=== PATIENT | female | born 1995 | race Caucasian/White ===

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

== ENCOUNTER 2017-04-05 17:40 | Emergency (ER) | payer BC ==
[~2017-04-05] VITALS: Ht 162.6 cm; Wt 72.7 kg
[~2017-04-05 17:40] MED LIST: AMOX250C3 PO
[2017-04-05 18:03] VITALS: Ht 162.6 cm; Wt 72.7 kg
[2017-04-05] MEDS ORDERED: ACETAMINOPHEN 500 MG TAB PO ONE (18:05)
[2017-04-05] MEDS ORDERED: CEFTRIAXONE SOD INJ 1 GM ADDVIAL IV STA (19:30)
[2017-04-05] MEDS ORDERED: SODIUM CHLORIDE 0.9% 1000ML 1,000 ML IV STA (19:30)
[2017-04-05] MEDS ORDERED: KETOROLAC TROMETHAMINE 30 MG/ML VIAL IV STA (19:30)
[2017-04-05 19:33] VITALS: TEMP 37.1
[2017-04-05 19:46] LABS: BASO % 0.1 %; BASO ABS # 0.01 K/uL (0-0.2); COMPLETE YES; EOS % 0.1 %; HEMATOCRIT 41.3 % (37-47); IG% 0.4 %; LYMPH % 17.5 %; LYMPH ABS # 2.36 K/uL (1.2-3.4); MEAN CORPUSCULAR HEMOGLOBIN 29.8 pg (25-34); MEAN CORPUSCULAR HGB CONC 32.4 g/dl (32-36); MEAN PLATELET VOLUME 9.3 fL (7.4-10.4); MONO % 12.4 %; NEUT % 69.5 %; PLATELET COUNT 349 K/uL (130-400); RED BLOOD COUNT 4.49 M/uL (4.2-5.4); WHITE BLOOD COUNT 13.49 K/uL (4.8-10.8)
[2017-04-05] MEDS ORDERED: CEFD1CAP14 PO (20:00)
--- NOTE | 2017-04-05 20:04 | EMERGENCY ROOM VISIT NOTE ---
History Report prepared by Mark: Sarath Damon Under the Supervision of: Dr. Usama Blevins D.O. First contact with patient: 19:21 Chief Complaint: URINARY SYMPTOMS Stated Complaint: LOW BACK PAIN, FEVER, UTI Nursing Triage Summary: Pt sent by [facility]. Pt reports pain across lower back, pain with urination. UTI two weeks ago, resolved then sx began again this weekend. Pt medicated with 1000mg Tylenol in triage. History of Present Illness The patient is a 21 year old female who presents to the Emergency Room with complaints of persistent urinary symptoms beginning this week. She states "I have a UTI". She also complains of low back pain. [facility] for similar symptoms and was referred to the ED after being found to be febrile. She states that she had similar symptoms last week, but they resolved briefly. She states that she took Azo last week, but was never on antibiotics. The patient denies any nausea, abdominal pain, or vaginal discharge. She is sexually active, but denies any chance of . Her LNMP was about two weeks ago. The patient has never been on antibiotics for a UTI before in the past. Source of History: patient Onset: This week Quality: other (urinary symptoms) Timing: other (persistent) Associated Symptoms: + fevers, + back pain (low), No nausea, No abdominal pain Note: The patient denies any vaginal discharge. Review of Systems See HPI for pertinent positives & negatives. A total of 10 systems reviewed and were otherwise negative. Past Medical & Surgical Medical Problems: (1) Asthma (2) Mononucleosis Family History Cancer Social History Smoking Status: Never Smoker Housing Status: lives with family Occupation Status: unemployed, [employer] Current/Historical Medications Scheduled Cefdinir (Omnicef), 300 MG PO Q12H Allergies Coded Allergies: No Known Allergies (Unverified , 04/05/17) Physical Exam Vital Signs Date Time Temp Pulse Resp B/P (MAP) Pulse Ox O2 Delivery O2 Flow Rate FiO2 04/05/17 21:05 66 18 112/67 98 04/05/17 19:37 86 18 132/70 97 Room Air 04/05/17 19:33 37.1 04/05/17 18:03 39.0 96 18 125/93 99 Room Air Physical Exam GENERAL: Patient is awake, alert, and in no acute distress. Patient is resting comfortably and showing no signs of anxiety EYES: The conjunctivae are clear. The pupils are round and reactive. EARS, NOSE, MOUTH AND THROAT: The nose is without any evidence of any deformity. Mucous membranes are moist tongue is midline NECK: The neck is nontender and supple. RESPIRATORY: Normal respiratory effort is noted there is no evidence of wheezing rhonchi or rales CARDIOVASCULAR: Regular rate and rhythm noted there no murmurs rubs or gallops normal S1 normal S2 GASTROINTESTINAL: Bowel sounds are present in all quadrants. Soft with mild suprapubic tenderness to palpation. No rebound, rigidity, or guarding. BACK: Mild CVA tenderness bilaterally. No midline tenderness. ROM intact. MUSCULOSKELETAL/EXTREMITIES: There is no evidence of gross deformity full range of motion is noted in the hips and shoulders SKIN: There is no obvious evidence of any rash. There are no petechiae, pallor or cyanosis noted. NEUROLOGIC: Patient is awake alert and oriented x3. Gait steady. Medical Decision & Procedures Laboratory Results 04/05/17 19:27 Red Blood Count 4.49, Mean Corpuscular Volume 92.0, Mean Corpuscular Hemoglobin 29.8, Mean Corpuscular Hemoglobin Concent 32.4, Mean Platelet Volume 9.3, Neutrophils (%) (Auto) 69.5, Lymphocytes (%) (Auto) 17.5, Monocytes (%) (Auto) 12.4, Eosinophils (%) (Auto) 0.1, Basophils (%) (Auto) 0.1, Neutrophils # (Auto ) 9.38, Lymphocytes # (Auto) 2.36, Monocytes # (Auto) 1.67, Eosinophils # (Auto ) 0.02, Basophils # (Auto) 0.01 04/05/17 19:27 Test 04/05/17 19:27 04/05/17 19:35 White Blood Count 13.49 K/uL (4.8-10.8) Red Blood Count 4.49 M/uL (4.2-5.4) Hemoglobin 13.4 g/dL (12.0-16.0) Hematocrit 41.3 % (37-47) Mean Corpuscular Volume 92.0 fL (80-100) Mean Corpuscular Hemoglobin 29.8 pg (25-34) Mean Corpuscular Hemoglobin Concent 32.4 g/dl (32-36) Platelet Count 349 K/uL (130-400) Mean Platelet Volume 9.3 fL (7.4-10.4) Neutrophils (%) (Auto) 69.5 % Lymphocytes (%) (Auto) 17.5 % Monocytes (%) (Auto) 12.4 % Eosinophils (%) (Auto) 0.1 % Basophils (%) (Auto) 0.1 % Neutrophils # (Auto) 9.38 K/uL (1.4-6.5) Lymphocytes # (Auto) 2.36 K/uL (1.2-3.4) Monocytes # (Auto) 1.67 K/uL (0.11-0.59) Eosinophils # (Auto) 0.02 K/uL (0-0.5) Basophils # (Auto) 0.01 K/uL (0-0.2) RDW Standard Deviation 43.2 fL (36.4-46.3) RDW Coefficient of Variation 12.8 % (11.5-14.5) Immature Granulocyte % (Auto) 0.4 % Immature Granulocyte # (Auto) 0.05 K/uL (0.00-0.02) Anion Gap 9.0 mmol/L (3-11) Est Creatinine Clear Calc Drug Dose 117.9 ml/min Estimated GFR () 133.9 Estimated GFR (Non- 115.6 BUN/Creatinine Ratio 10.1 (10-20) Calcium Level 9.6 mg/dl (8.5-10.1) Total Bilirubin 0.6 mg/dl (0.2-1) Direct Bilirubin 0.2 mg/dl (0-0.2) Aspartate Amino Transf (AST/SGOT) 15 U/L (15-37) Alanine Aminotransferase (ALT/SGPT) 16 U/L (12-78) Alkaline Phosphatase 72 U/L (45-117) Total Protein 8.4 gm/dl (6.4-8.2) Albumin 4.0 gm/dl (3.4-5.0) Lipase 81 U/L (73-393) Human Chorionic Gonadotropin, Qual NEG (NEG) Urine Color ORANGE Urine Appearance CLEAR (CLEAR) Urine pH (4.5-7.5) Urine Specific [place] 1.008 (1.000-1.030) Urine Protein (NEG) Urine Glucose (UA) (NEG) Urine Ketones (NEG) Urine Occult Blood (NEG) Urine Nitrite (NEG) Urine Bilirubin (NEG) Urine Urobilinogen (NEG) Urine Leukocyte Esterase (NEG) Urine RBC 10-30 /hpf (0-4) Urine WBC >30 /hpf (0-5) Urine Epithelial Cells >30 /lpf (0-5) Urine Bacteria 2+ (NEG) Laboratory results per my review. Medications Administered Medications (Trade) Dose Ordered Sig/Deandre Route Start Time Stop Time Status Last Admin Dose Admin Acetaminophen (Tylenol Tab) 1,000 mg STK-MED ONCE PO 04/05/17 18:05 04/05/17 18:06 DC 04/05/17 18:07 1,000 MG Ketorolac Tromethamine (Toradol Inj) 30 mg NOW STAT IV 04/05/17 19:30 04/05/17 19:32 DC 04/05/17 19:39 30 MG Sodium Chloride 1,000 ml @ 999 mls/hr Q1H1M STAT IV 04/05/17 19:30 04/05/17 20:30 DC 04/05/17 19:38 999 MLS/HR Ceftriaxone Sodium (Rocephin Inj) 1 gm NOW STAT IV 04/05/17 19:30 04/05/17 19:32 DC 04/05/17 19:39 1 GM ED Course 1920: The patient was evaluated in room C2B. A complete history and physical examination were performed. 1930: Ordered Rocephin Inj 1 gm IV, NSS 1,000 ml @ 999 mls/hr IV, Toradol Inj 30 mg IV. Medical Decision Differential diagnosis: Etiologies such as renal colic, appendicitis, diverticulitis, mesenteric ischemia, aortic pathology, infections, inflammatory bowel disease, PUD, biliary pathology, UTI, as well as others were entertained. Nursing notes reviewed. The patient is a 21-year-old female who presented to the emergency department for an evaluation of dysuria frequency and low back pain. The patient was initially seen at [facility] and was sent to the emergency department for further evaluation. The patient was treated with IV fluids in the emergency department. She was also started on antibiotics. I discussed the patient's laboratory results with her. She was feeling much better on subsequent reevaluation. She has no signs of sepsis. She is young and healthy and I feel she would do well as an outpatient with an antibiotic regimen. She was encouraged to drink plenty clear liquids and continue all medications as prescribed. She was also encouraged to follow-up with [facility] but return to the emergency department immediately if symptoms change worsen or the need arises. Medication Reconcilliation Current Medication List: was personally reviewed by me Blood Pressure Screening Patient's blood pressure: Normal blood pressure Blood pressure disposition: Did not require urgent referral Impression Primary Impression: Urinary tract infection Additional Impression: Fever Scribe Attestation The scribe's documentation has been prepared under my direction and personally reviewed by me in its entirety. I confirm that the note above accurately reflects all work, treatment, procedures, and medical decision making performed by me. Departure Information Dispostion Home / Self-Care Prescriptions Cefdinir (Omnicef) 300 Mg Cap 300 MG PO Q12H, #14 CAP Prov: Usama Blevins, DO 04/05/17 Referrals No Doctor, Assigned (PCP) Forms HOME CARE DOCUMENTATION FORM, IMPORTANT VISIT INFORMATION Patient Instructions My [facility], Urinary Tract Infecs Women Additional Instructions Continue using Motrin and Tylenol as directed for fever and body aches. Drink plenty of clear liquids. Continue all medications as prescribed. Follow-up with [facility] this week for reevaluation. Return to the emergency department immediately if symptoms change worsen or the need arises. Problem Qualifiers Primary Impression: Urinary tract infection Urinary tract infection type: site unspecified Hematuria presence: without hematuria Qualified Codes: N39.0 - Urinary tract infection, site not specified Additional Impression: Fever Fever type: unspecified Qualified Codes: R50.9 - Fever, unspecified
[2017-04-05 20:11] LABS: MANUAL MICROSCOPIC REQUIRED? YES; REVIEW REQ? NO; SULFASALICYLIC ACID POS (NEG); URINE APPEARANCE CLEAR (CLEAR); URINE COLOR ORANGE; URINE SPECIFIC GRAVITY 1.008 (1.000-1.030)
[2017-04-05 20:19] LABS: URINE BACTERIA 2+ (NEG); URINE WBC >30 /hpf (0-5)
[2017-04-05 20:27] LABS: PREG INTERNAL NEGATIVE QC NEG CLEAR BACKGROUND; PREG INTERNAL POSITIVE QC POS CONTROL LINE
[2017-04-05 20:29] LABS: BUN/CREATININE RATIO 10.1 (10-20); CALCIUM 9.6 mg/dl (8.5-10.1); CREATININE 0.75 mg/dl (0.60-1.20); POTASSIUM 3.7 mmol/L (3.5-5.1)
[2017-04-05 21:05] VITALS: BP 112/67; PULSE 66; O2SAT 98
== END 2017-04-05 21:06 | disposition home or self-care (01) ==
LOC: C.EDB 17:41 → C.EDC 21:06
DX: N39.0 Urinary tract infection, site not specified (principal); R50.9 Fever, unspecified; J45.909 Unspecified asthma, uncomplicated; Z80.9 Family history of malignant neoplasm, unspecified

== ENCOUNTER 2017-09-03 03:46 | Emergency (ER) | payer BC ==
[~2017-09-03] VITALS: Ht 162.6 cm; Wt 69.3 kg
[~2017-09-03 03:46] MED LIST changes: -AMOX250C3 PO; +CEFD1CAP14 PO
[2017-09-03 03:49] VITALS: TEMP 36.5; Ht 162.6 cm; Wt 69.3 kg
[2017-09-03] MEDS ORDERED: LIDOCAINE/EPINEPH/TETRACAINE 1 EA SYR EXT STA (04:44)
[2017-09-03 05:21] VITALS: BP 122/60; PULSE 89; O2SAT 98
--- NOTE | 2017-09-03 05:46 | EMERGENCY ROOM VISIT NOTE ---
ED Visit Note First contact with patient: 04:41 CHIEF COMPLAINT: Facial laceration HISTORY OF PRESENT ILLNESS: This 22-year-old female patient presents emergency department, ambulatory, complaining of a laceration to the inferior chin. The patient states she awoke early this morning to go to the bathroom, and as she was getting out of bed, she tripped on a shirt which was playing on her linoleum floor. She states when she stepped on this shirt, it slipped, and she fell onto the ground. She denies striking her head against any furniture, but states the laceration is from the head into the linoleum floor. There was no loss of consciousness, vomiting, or unusual behavior afterwards. Denies neck pain. No headache, nausea, or blurred vision. There is minimal bleeding. The patient rates the pain as minimal and 2/10. The patient's tetanus shot is up to date. REVIEW OF SYSTEMS: A 6 system review of systems was completed with positives and pertinent negatives listed in the HPI. ALLERGIES: None MEDICATIONS: None PMH: None SOCIAL HISTORY: The patient lives locally with her roommate. She is a [employer] student. She denies drug, alcohol, tobacco use. PHYSICAL EXAM: Vital Signs: Reviewed Nurse's notes, vital signs stable. GENERAL : This is a 22-year-old white female, in no acute distress, well-developed, well -nourished. NEURO: The patient is alert and oriented to person place and time. No focal neurological defects. EYES: Pupils are round, equal, and react to light. EOMI. EARS: No hemotympanum. NECK: Supple. No cervical spine tenderness. FACE: No facial bone tenderness or mandibular tenderness. The mouth can open fully. The teeth are well aligned. No loose or chipped teeth. SKIN: There is a 1 cm laceration on the inferior chin. The edges gape apart with traction. There is no active bleeding and no foreign material in the wound. There are no deep structures present. Capillary refill less than two seconds. Normal sensation to light and sharp touch. EMERGENCY DEPARTMENT COURSE: I examined the patient. Verbal consent was obtained to perform the procedure. LET gel was applied to the face and allowed to sit for approximately 30 minutes. Once the patient was anesthetized, the area was sterilely draped. Using sterile technique, the wound was copiously irrigated under pressure with sterile saline. The wound was cleansed with Betadine. The wound was explored and was as described above. The laceration was repaired using 2 simple interrupted 6-0 nylon sutures with the wound edges being well approximated. The patient tolerated the procedure well. Hemostasis was achieved. The area was cleaned with sterile saline and dressed with bacitracin ointment. The patient was discharged home in good condition. I attest that I have personally reviewed the patient's current medication list. Patient was found to have normal blood pressure on screening and does not require follow-up. DIFFERENTIAL DIAGNOSIS: Laceration, contusion, facial bone fracture, ICH, closed head injury, and others DIAGNOSIS: Facial laceration, fall from standing Problem List Medical Problems: (1) Asthma Status: Chronic (2) Mononucleosis Status: Resolved Current/Historical Medications No Active Prescriptions or Reported Meds Allergies Coded Allergies: No Known Allergies (Unverified , 09/03/17) Vital Signs Date Time Temp Pulse Resp B/P (MAP) Pulse Ox O2 Delivery O2 Flow Rate FiO2 09/03/17 05:21 89 18 122/60 98 Room Air 09/03/17 03:49 36.5 118 18 106/56 96 Room Air Medications Administered Medications (Trade) Dose Ordered Sig/Deandre Route Start Time Stop Time Status Last Admin Dose Admin Tetracaine/ Epinephrine/ Lidocaine (L.e.t. Gel 4%/ 1:100/0.5%) 1 ea UD STAT EXT 09/03/17 04:44 09/03/17 04:45 DC 09/03/17 04:49 1 EA Departure Information Impression Primary Impression: Facial laceration Additional Impression: Fall from standing Dispostion Home / Self-Care Condition GOOD Prescriptions No Active Prescriptions or Reported Meds Referrals No Doctor, Assigned (PCP) [facility] Patient Instructions ED Laceration Chin Sutr Tape, My [employer] Additional Instructions You have received 2 sutures on your chin. These sutures are NOT dissolvable and WILL need to be removed by a health care provider in 4-6 days. You can return to the Emergency Department or contact your Primary Care Provider to have the sutures removed. Proper wound care is essential for adequate wound healing and infection prevention. You can shower and clean the wound with soap and water. Do not scour over the wound, pat dry with a towel. Do not submerse the wound (i.e. bathe or dish wash) until the sutures have been removed. You can use an antibiotic ointment with a dressing over the wound for the next 3-4 days. After this time you may leave the wound dry and open to the air. If crust develops over the wound you can use a Q-tip to apply a 1:1 peroxide:water solution to clean the wound. Look for signs of infection of the wound including: increased pain, swelling, foul discharge, streaking, or increased temperature. If any of these are noticed you should return to the Emergency Department for further assessment and treatment. As with any laceration you may have received nerve damage to the surrounding tissues. This damage may or may not be permanent. You should keep the area covered with sunscreen for the first 6 months to 1 year when at risk for exposure to help minimize scarring. You can also use scar reducing creams or Vitamin E oil to help minimize scarring. For pain control, you can use the following [id number] medicines (if >12 yo): Ibuprofen(Motrin, Advil) may be used for fever or pain. Use 600mg every six hours as needed. Take with food. Avoid using more than 2400mg in a 24 hour period. Do not use 2400mg per day for more than three consecutive days without physician direction. Prolonged inappropriate use can lead to stomach upset or ulcers. (AND/OR) Acetaminophen(Tylenol) may be used for fever or pain. Use 1000mg every six hours as needed. Avoid using more than 3000mg in a 24 hour period. Return to the emergency department if your symptoms worsen despite treatment course outlined above. Problem Qualifiers Primary Impression: Facial laceration Encounter type: initial encounter Qualified Codes: S01.81XA - Laceration without foreign body of other part of head, initial encounter Additional Impression: Fall from standing Encounter type: initial encounter Qualified Codes: W19.XXXA - Unspecified fall, initial encounter
== END 2017-09-03 05:51 | disposition home or self-care (01) ==
LOC: C.EDB 03:47
DX: S01.81XA Laceration without foreign body of other part of head, initial encounter (principal); W01.0XXA Fall on same level from slipping, tripping and stumbling without subsequent striking against object, initial encounter; J45.909 Unspecified asthma, uncomplicated